=== PATIENT | male | born 1950 | race Caucasian/White ===

== ENCOUNTER → 2017-10-02 | Outpatient (CLI) | payer MEDICARE, OTHER | LOC: M PLARAD 08:36 | DX: M54.5 Low back pain (principal) | CPT/HCPCS: 72148 ==

== ENCOUNTER → 2017-11-27 | Outpatient (CLI) | payer MEDICARE, OTHER | LOC: M PAIN 09:00 | DX: M96.1 Postlaminectomy syndrome, not elsewhere classified (principal); M47.816 Spondylosis without myelopathy or radiculopathy, lumbar region; G89.29 Other chronic pain; I10 Essential (primary) hypertension; M19.90 Unspecified osteoarthritis, unspecified site; I25.10 Atherosclerotic heart disease of native coronary artery without angina pectoris; E11.9 Type 2 diabetes mellitus without complications; R51 Headache; E83.118 Other hemochromatosis; G47.30 Sleep apnea, unspecified; R06.83 Snoring; J44.9 Chronic obstructive pulmonary disease, unspecified; K21.9 Gastro-esophageal reflux disease without esophagitis; H81.49 Vertigo of central origin, unspecified ear; Z79.82 Long term (current) use of aspirin; Z79.899 Other long term (current) drug therapy; Z88.2 Allergy status to sulfonamides; Z88.5 Allergy status to narcotic agent; Z87.39 Personal history of other diseases of the musculoskeletal system and connective tissue | CPT/HCPCS: G0463 ==

== ENCOUNTER → 2017-12-09 | Outpatient (CLI) | payer MEDICARE, OTHER | END | disposition home or self-care (01) | LOC: M PAIN 13:15 | DX: G89.29 Other chronic pain (principal); M96.1 Postlaminectomy syndrome, not elsewhere classified; M54.5 Low back pain; M47.816 Spondylosis without myelopathy or radiculopathy, lumbar region; I10 Essential (primary) hypertension; M19.90 Unspecified osteoarthritis, unspecified site; J44.9 Chronic obstructive pulmonary disease, unspecified; G47.30 Sleep apnea, unspecified; I25.10 Atherosclerotic heart disease of native coronary artery without angina pectoris; D45 Polycythemia vera; Z79.899 Other long term (current) drug therapy; Z79.82 Long term (current) use of aspirin; Z88.2 Allergy status to sulfonamides; Z88.5 Allergy status to narcotic agent; Z87.891 Personal history of nicotine dependence | CPT/HCPCS: G0463 ==

== ENCOUNTER → 2018-07-28 | Outpatient (REF) | payer MEDICARE, OTHER ==
[~2018-07-28] MED LIST: ATEN25TA PO; BAYE325T12 PO; CHLO125TA PO; FAMO1TAB25 PO; LOSA-4 PO; LOSA25TA33 PO; METF-415 PO; VITA1CAP2 PO
== END ==
LOC: M SFHCPLAZ 17:24
PROVIDERS: ATTEND Dermatology
DX: C44.519 Basal cell carcinoma of skin of other part of trunk (principal); D23.72 Other benign neoplasm of skin of left lower limb, including hip
CPT/HCPCS: 11100; 11101; 17000; 17003; 88305; G0463

== ENCOUNTER → 2018-12-16 | Outpatient (REF) | payer MEDICARE, OTHER ==
[~2018-12-16] MED LIST changes: +LANTINJ4 SC; -LOSA-4 PO; +LOSA100T50 PO; +LOSA25TA14 PO; -LOSA25TA33 PO; +TREL1AER PO; +VITA-183 PO; -VITA1CAP2 PO
[2018-12-16 17:12] LABS: CREATININE FOR GFR 1.28 MG/DL (0.70-1.30); GLOMERULAR FILTRATION RATE 59.3 (>49)
[2018-12-16 17:46] LABS: CREATININE, URINE 45.8 MG/DL; MALB URINE SIEMENS 5.2 MG/L; MAU/CREAT RATIO 11.3 MCG/MG (0.0-30.0)
== END ==
LOC: M LABDRAW1 16:14
PROVIDERS: ATTEND Nurse Practitioner Family
DX: E11.65 Type 2 diabetes mellitus with hyperglycemia (principal)

== ENCOUNTER → 2019-03-29 | Outpatient (CLI) | payer MEDICARE, OTHER ==
--- NOTE | 2019-03-31 07:26 | REP ---
REASON FOR EXAM: Single pulmonary nodule. Assess for hypermetabolism. After the intravenous administration of 9.50 millicuries of FDG 18, triplane whole body PET CT was performed from the skull base to the mid-thigh. There are no prior PET CT's examinations for comparison. Outside prior chest CT showed an 8 mm sized nodule in the right lower lobe for which this examination was performed. The prior chest CT from the outside institution of 03/07/2019 was reviewed along with an additional prior examination from that same outside institution dated 08/27/2018. When the CT scans are compared the nodule seen in the right lower lobe is unchanged. There is no abnormal hypermetabolic activity seen in the neck, chest, abdomen, or pelvis. When the CT component of today's PET CT is windowed in lung technique and compared to the prior exams, the nodule is again seen to be stable. It is, however, just within or just outside the size requirement necessary for the systems intrinsic resolution to image hypermetabolic lesions, particularly if the lesions are minimally hypermetabolic with lowest threshold hypermetabolism. IMPRESSION: No abnormal hypermetabolic activity with findings as described above. I am more reassured that the nodule seen in the right lung lower lobe has shown stability between the two outside CT scans of the chest dated 08/27/2018 and 03/07/2019 than I am by today's PET CT showing no abnormal hypermetabolic activity. The reason is described above. Since the nodule has shown CT stability for 7 months, yearly screening CT of the chest is recommended as per the revised Fleischner's Society Criteria. The lesion can be categorized as a category 2 nodule. Electronically Signed by Sylvester Hopkins DO 03/31/2019 11:12 A
== END ==
LOC: M PLARAD 09:06
PROVIDERS: ATTEND Physician Assistant
DX: R91.1 Solitary pulmonary nodule (principal)
CPT/HCPCS: 78815; A9552

== ENCOUNTER 2019-09-01 09:52 | Day surgery (SDC) | payer MEDICARE, OTHER ==
[~2019-09-01] VITALS: Ht 175.3 cm; Wt 100.0 kg
[~2019-09-01 09:52] MED LIST changes: +CEFUROXIME 1MG/0.1ML INTRACAMERAL INJ As Ordered ONE; +DUOVISC (0.50ML VISCOAT/0.55ML PROVISC) OPHTH KIT As Ordered ONE; +LR 1,000 ML IV ONE; +MIDAZOLAM INJ 2 MG/2 ML VIAL (J2250) As Ordered ONE; +OFLOXACIN 0.3 % (OCUFLOX) OPTH SOL 5ML OS ONE; +PHENYLEPHRINE 2.5% OPHTH SOL 2ML OS ONE; +POVIDONE-IODINE 5% OPHTH PREP SOL 30ML As Ordered ONE; +PROPARACAINE 0.5% OPHTH SOL 15ML OS ONE; +TROPICAMIDE 1% OPHTH SOLN 2ML OS ONE; +VITA100066 PO
[2019-09-01] MEDS ORDERED: BSS IRR 500ML/OMIDRIA 4ML IRR BAG (OR ONLY) (J1097 PER ML) As Ordered ONE (10:00)
[2019-09-01] MEDS ORDERED: fentaNYL 100 MCG/2 ML INJECTION (J3010) As Ordered ONE (12:15)
[2019-09-01 13:26] VITALS: BP 117/64
--- NOTE | 2019-09-02 19:35 | RO ---
DATE OF PROCEDURE: 09/01/2019 PREOPERATIVE DIAGNOSIS: 1. Visually significant nuclear sclerotic cataract left eye. POSTOPERATIVE DIAGNOSIS: 1. Visually significant nuclear sclerotic cataract left eye. PROCEDURE: 1. Cataract extraction with use of phacoemulsification and placement of intraocular lens, AU00T0, 21.0 D, left eye. SURGEON: Christiano Ledbetter DO ROAD GANG SUPERVISOR: None. ANESTHESIA: Local with monitored anesthesia care (MAC), Omidria 4mL/500mL (Omeros) COMPLICATIONS: None. POSTOPERATIVE CONDITION: Stable. INDICATIONS FOR SURGERY: 1. Blurred vision affecting patients activities of daily living. DESCRIPTION OF PROCEDURE: The patient was seen in the preoperative area and properly identified. The correct operative eye was identified and marked. The patient received topical anesthetic, antibiotics, and topical dilating drops. The patient was then transferred to the operating room. The correct side was re-identified, and a time-out was performed. The eye was prepped and draped in a sterile fashion. The eyelids were isolated with Tegaderm tape, and the lids were held open with an adjustable speculum. A 1.0 mm paracentesis incision was made. Intraocular preservative-free Shugarcaine was then injected into the anterior chamber. Viscoelastic was then injected into the anterior chamber through the paracentesis. Using a 2.4 mm sharp-tipped keratome, the anterior chamber was entered via a temporal clear cornea incision. A continuous curvilinear capsulorrhexis was created with Utrata forceps. Hydrodissection was performed with balanced salt solution (BSS) on a blunt cannula until the nucleus was able to rotate freely. The crystalline lens was phacoemulsified and aspirated. Irrigation/aspiration was used to remove the cortical material. Cohesive viscoelastic was placed into the capsular bag to deepen it. The implant was placed into the capsular bag and allowed to unfold. Placement was confirmed by visualizing the anterior capsulorrhexis. Irrigation/aspiration was used to remove the viscoelastic. The clear corneal incision was hydrated with BSS on a blunt cannula. The lens was well positioned. The incisions were then tested for leaks and found to be negative. Cefuroxime was placed into the anterior chamber. The eye was then palpated for appropriate pressure and adjusted accordingly with BSS. The eyelid speculum was then carefully removed. A shield was placed over the eye. The patient tolerated the procedure well and was discharged to the recovery unit in a stable condition. JONAS
== END 2019-09-01 13:30 | disposition home or self-care (01) ==
LOC: M SDC 09:52
PROVIDERS: ATTEND Ophthalmology
DX: H25.12 Age-related nuclear cataract, left eye (principal); M54.41 Lumbago with sciatica, right side; M54.42 Lumbago with sciatica, left side; J44.9 Chronic obstructive pulmonary disease, unspecified; E11.69 Type 2 diabetes mellitus with other specified complication; E66.9 Obesity, unspecified; I11.9 Hypertensive heart disease without heart failure; E78.5 Hyperlipidemia, unspecified; G47.33 Obstructive sleep apnea (adult) (pediatric); N52.9 Male erectile dysfunction, unspecified; M10.9 Gout, unspecified; K21.9 Gastro-esophageal reflux disease without esophagitis; M47.9 Spondylosis, unspecified; D45 Polycythemia vera; Z88.5 Allergy status to narcotic agent; Z88.2 Allergy status to sulfonamides; Z88.8 Allergy status to other drugs, medicaments and biological substances; Z79.899 Other long term (current) drug therapy; Z79.82 Long term (current) use of aspirin; Z79.52 Long term (current) use of systemic steroids; Z79.4 Long term (current) use of insulin; Z87.891 Personal history of nicotine dependence
CPT/HCPCS: 66984; J1097; J2250; J3010; V2632

== ENCOUNTER → 2019-09-08 | Outpatient (REF) ==
[~2019-09-08] MED LIST changes: -CEFUROXIME 1MG/0.1ML INTRACAMERAL INJ As Ordered ONE; -DUOVISC (0.50ML VISCOAT/0.55ML PROVISC) OPHTH KIT As Ordered ONE; -LR 1,000 ML IV ONE; -MIDAZOLAM INJ 2 MG/2 ML VIAL (J2250) As Ordered ONE; -OFLOXACIN 0.3 % (OCUFLOX) OPTH SOL 5ML OS ONE; -PHENYLEPHRINE 2.5% OPHTH SOL 2ML OS ONE; -POVIDONE-IODINE 5% OPHTH PREP SOL 30ML As Ordered ONE; -PROPARACAINE 0.5% OPHTH SOL 15ML OS ONE; -TROPICAMIDE 1% OPHTH SOLN 2ML OS ONE
== END ==
LOC: M LAB LCGH 10:47
PROVIDERS: ATTEND Surgery
DX: C44.629 Squamous cell carcinoma of skin of left upper limb, including shoulder (principal); C44.712 Basal cell carcinoma of skin of right lower limb, including hip

== ENCOUNTER 2019-09-15 09:29 | Day surgery (SDC) | payer MEDICARE, OTHER ==
[~2019-09-15] VITALS: Ht 174 cm; Wt 99.8 kg
[~2019-09-15 09:29] MED LIST changes: +BSS IRR 500ML/OMIDRIA 4ML IRR BAG (OR ONLY) (J1097 PER ML) As Ordered ONE; +CEFUROXIME 1MG/0.1ML INTRACAMERAL INJ As Ordered ONE; +DUOVISC (0.50ML VISCOAT/0.55ML PROVISC) OPHTH KIT As Ordered ONE; +OFLOXACIN 0.3 % (OCUFLOX) OPTH SOL 5ML OD ONE; +PHENYLEPHRINE 2.5% OPHTH SOL 2ML OD ONE; +POVIDONE-IODINE 5% OPHTH PREP SOL 30ML As Ordered ONE; +PROPARACAINE 0.5% OPHTH SOL 15ML OD ONE; +TROPICAMIDE 1% OPHTH SOLN 2ML OD ONE
[2019-09-15] MEDS ORDERED: MIDAZOLAM INJ 2 MG/2 ML VIAL (J2250) As Ordered ONE (11:47)
[2019-09-15] MEDS ORDERED: fentaNYL 100 MCG/2 ML INJECTION (J3010) As Ordered ONE (11:47)
[2019-09-15 13:25] VITALS: BP 116/65
--- NOTE | 2019-09-16 16:23 | RO ---
DATE OF PROCEDURE: 09/15/2019 PREOPERATIVE DIAGNOSIS: 1. Visually significant nuclear sclerotic cataract right eye. POSTOPERATIVE DIAGNOSIS: 1. Visually significant nuclear sclerotic cataract right eye. PROCEDURE: 1. Cataract extraction with use of phacoemulsification and placement of intraocular lens, AU00T0, 21.5 D, right eye. SURGEON: Christiano Ledbetter DO AUTISTIC TEACHER: None. ANESTHESIA: Local with monitored anesthesia care (MAC), with Omidria (4 mL/500 mL) mixed into irrigation solution. COMPLICATIONS: None. POSTOPERATIVE CONDITION: Stable. INDICATIONS FOR SURGERY: 1. Blurred vision affecting patients activities of daily living. DESCRIPTION OF PROCEDURE: The patient was seen in the preoperative area and properly identified. The correct operative eye was identified and marked. The patient received topical anesthetic, antibiotics, and topical dilating drops. The patient was then transferred to the operating room. The correct side was re-identified, and a time-out was performed. The eye was prepped and draped in a sterile fashion. The eyelids were isolated with Tegaderm tape, and the lids were held open with an adjustable speculum. A 1.0 mm paracentesis incision was made. Intraocular preservative-free Shugarcaine was then injected into the anterior chamber. Viscoelastic was then injected into the anterior chamber through the paracentesis. Using a 2.4 mm sharp-tipped keratome, the anterior chamber was entered via a temporal clear cornea incision. A continuous curvilinear capsulorrhexis was created with Utrata forceps. Hydrodissection was performed with balanced salt solution (BSS) on a blunt cannula until the nucleus was able to rotate freely. The crystalline lens was phacoemulsified and aspirated. Irrigation/aspiration was used to remove the cortical material. Cohesive viscoelastic was placed into the capsular bag to deepen it. The implant was placed into the capsular bag and allowed to unfold. Placement was confirmed by visualizing the anterior capsulorrhexis. Irrigation/aspiration was used to remove the viscoelastic. The clear corneal incision was hydrated with BSS on a blunt cannula. The lens was well positioned. The incisions were then tested for leaks and found to be negative. Cefuroxime was injected into the anterior chamber. The eye was then palpated for appropriate pressure and adjusted accordingly with BSS. The eyelid speculum was then carefully removed. A shield was placed over the eye. The patient tolerated the procedure well and was discharged to the recovery unit in a stable condition.
== END 2019-09-15 13:25 | disposition home or self-care (01) ==
LOC: M SDC 09:29
PROVIDERS: ATTEND Ophthalmology
DX: H25.11 Age-related nuclear cataract, right eye (principal); I10 Essential (primary) hypertension; E10.9 Type 1 diabetes mellitus without complications; Z79.4 Long term (current) use of insulin; Z79.84 Long term (current) use of oral hypoglycemic drugs; K21.9 Gastro-esophageal reflux disease without esophagitis; M10.9 Gout, unspecified; J44.9 Chronic obstructive pulmonary disease, unspecified; Z88.2 Allergy status to sulfonamides; Z88.5 Allergy status to narcotic agent; Z87.891 Personal history of nicotine dependence; Z79.899 Other long term (current) drug therapy; G47.30 Sleep apnea, unspecified; Z92.3 Personal history of irradiation
CPT/HCPCS: 66984; J1097; J2250; J3010; V2632

== ENCOUNTER → 2019-11-01 | Outpatient (REF) | payer MEDICARE, OTHER ==
[~2019-11-01] MED LIST changes: +ADV500INH INH; -BSS IRR 500ML/OMIDRIA 4ML IRR BAG (OR ONLY) (J1097 PER ML) As Ordered ONE; -CEFUROXIME 1MG/0.1ML INTRACAMERAL INJ As Ordered ONE; +CHLO50TA PO; -DUOVISC (0.50ML VISCOAT/0.55ML PROVISC) OPHTH KIT As Ordered ONE; +FAMO20TA PO; +HUMA100I5 SC; +JARD1TAB PO; +MUPI2OI EXT; +NORV5TAB PO; -OFLOXACIN 0.3 % (OCUFLOX) OPTH SOL 5ML OD ONE; -PHENYLEPHRINE 2.5% OPHTH SOL 2ML OD ONE; -POVIDONE-IODINE 5% OPHTH PREP SOL 30ML As Ordered ONE; -PROPARACAINE 0.5% OPHTH SOL 15ML OD ONE; +SPIR12.9 INH; -TROPICAMIDE 1% OPHTH SOLN 2ML OD ONE; +VITA-144 PO
== END ==
LOC: M LAB REF 15:46
PROVIDERS: ATTEND Ophthalmology
DX: C44.1292 Squamous cell carcinoma of skin of left lower eyelid, including canthus (principal)

== ENCOUNTER 2019-11-08 05:31 | Day surgery (SDC) | payer MEDICARE, OTHER ==
[~2019-11-08] VITALS: Ht 175.3 cm; Wt 100.7 kg
[2019-11-08] MEDS ORDERED: LIDOCAINE 1% MDV 20ML VIAL SQ PRN (06:00)
[2019-11-08] MEDS ORDERED: ceFAZolin SOD 2 GM in IV 1 EA IV ONE (07:00)
[2019-11-08] MEDS ORDERED: LR 1,000 ML IV ONE (07:00)
[2019-11-08] MEDS ORDERED: LIDOCAINE 2% W/EPIN INJ 20ML **PRES FREE As Ordered ONE (07:16)
[2019-11-08] MEDS ORDERED: LIDOCAINE W/EPINEPHRINE 1% 20ML VIAL As Ordered ONE ×2 (07:17→08:23)
[2019-11-08] MEDS ORDERED: EPINEPHrine INJ 1 MG/ML 1ML VIAL As Ordered ONE (07:17)
[2019-11-08] MEDS ORDERED: BACITRACIN OINT 30GM As Ordered ONE (07:17)
[2019-11-08] MEDS ORDERED: BACITRACIN PWD 50,000 UNITS VIAL As Ordered ONE (07:17)
[2019-11-08] MEDS ORDERED: MIDAZOLAM INJ 2 MG/2 ML VIAL (J2250) As Ordered ONE ×2 (07:20→08:09)
[2019-11-08] MEDS ORDERED: LIDOCAINE 2% INJ 100 MG/5 ML SDV (FOR ANES.) As Ordered ONE (07:20)
[2019-11-08] MEDS ORDERED: fentaNYL 100 MCG/2 ML INJECTION (J3010) As Ordered ONE (07:20)
[2019-11-08] MEDS ORDERED: propofoL 200 MG/20 ML VIAL As Ordered ONE ×2 (07:20→08:47)
[2019-11-08] MEDS ORDERED: LIDOCAINE 1% MDV 20ML VIAL As Ordered ONE (07:50)
[2019-11-08] MEDS ORDERED: ACETAMINOPHEN 1000MG 100ML IV BTL (OFIRMEV) (J0131 PER 10MG) As Ordered ONE (08:25)
[2019-11-08] MEDS ORDERED: ONDANSETRON 4MG/2ML VIAL (J2405) As Ordered ONE (08:25)
[2019-11-08] MEDS ORDERED: LACRILUBE (AKWA TEARS) OPHTH OINT 3.5 GM As Ordered ONE (09:30)
[2019-11-08] MEDS ORDERED: KETOROLAC 60 MG/2 ML VIAL (J1885) As Ordered ONE (09:44)
--- NOTE | 2019-11-08 09:44 | POST-OPPD ---
Postoperative Procedure Note Date Of Procedure: Nov 08, 2019 PREOPERATIVE DIAGNOSIS: Left hand malignant lesion, open wound POSTOPERATIVE DIAGNOSIS: same FINDINGS: open wound and satellite lesion left hand dorsum. 1.4 x 2.5cm PROCEDURE: Excision left hand open wound, malignant lesion with full thickness skin graft closure. Donor site left arm. Graft 1.9x2.5cm SURGEON: Dr Meza ANESTHESIA: General SPECIMENS: Left hand lesion ESTIMATED BLOOD LOSS: 5 cc REPLACED: none DRAINS: none COMPLICATIONS: none POSTOPERATIVE CONDITION: stable [id number] ESTRELLITA MEZA DO Nov 08, 2019 09:44
[2019-11-08 10:20] VITALS: BP 121/73
--- NOTE | 2019-11-08 14:59 | RO ---
DATE OF OPERATION: 11/08/2019 PREOPERATIVE DIAGNOSIS: Left hand malignant lesion, open wound. POSTOPERATIVE DIAGNOSIS: Left hand malignant lesion, open wound. FINDINGS: Open wound and satellite lesion. Total measure 1.4 x 2.5 cm in diameter. PROCEDURE: Excision left hand open wound malignant lesion with full thickness skin graft closure. Donor site left arm, graft size 1.9 x 2.5 cm. ATTENDING SURGEON: Angelika Escobar DO ANESTHESIA: General. SPECIMEN: Left hand lesion. ESTIMATED BLOOD LOSS: 5 mL. No replacements, drains or complications. 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 The patient presents to us with open wound on the left dorsum of his hand in the mid portion from the knuckle to the first webspace. The lesion is an open wound that has been not healing for the past 2- 3 months. He had excision of squamous cell carcinoma in that area. Also the patient has a satellite lesion at 9 o'clock from the original lesion. 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 However, the day of surgery we reexamined the patient and that wound has healed and has a small scab on it and does not require surgical intervention so we decided that we will only do the hand excision. All the risks, benefits and alternatives were discussed with the patient in detail regarding the graft and excision and we are planning to do frozen section, and he is ready to proceed. After informed consent was confirmed, he was brought into the operating room, placed in supine position. Preoperative antibiotics are given. Sequential stockings placed on the lower calves. He is prepped and draped in the usual sterile fashion. 1% lidocaine was infiltrated in the area of the lesion and in the area of the left upper arm where the donor site is going to be Also, the radial block was given at the wrist for pain control. After sufficient time passed, we remeasured the lesion, confirmed the sizing and then margins were taken around the excision that we are going to take, and the lesion was completely excised, marked at 12 o'clock with nylon suture and sent to pathology. Pathology confirmed that the satellite lesion next to the open wound is a squamous cell as well. All the clear margins were confirmed. At this point, the wound was irrigated with bacitracin irrigation solution. Then from the donor site we took a full thickness skin graft which was elevated. The donor site was then irrigated and hemostasis obtained and was closed in layers with interrupted #4-0 chromic sutures and #4-0 Monocryl sutures in layers, and sterile dressing was applied. The full thickness skin graft was examined, defatted and then placed and fitted to the open wound which was 1.9 x 2.5 cm at this time. Interrupted #4-0 chromic sutures were used to secure the graft, Then, the bolster dressing was created with Xeroform and bacitracin irrigation soaked cotton balls and a pressure dressing. Volar splint was placed as well as Felix dressing on the top for protection. The patient was comfortable through he whole procedure and he was transferred to the recovery room in stable condition. JONAS
== END 2019-11-08 10:39 | disposition home or self-care (01) ==
LOC: M SDC 05:31
PROVIDERS: ATTEND Plastic Surgery Surgery of the Hand
DX: C44.629 Squamous cell carcinoma of skin of left upper limb, including shoulder (principal); I10 Essential (primary) hypertension; E10.9 Type 1 diabetes mellitus without complications; Z79.4 Long term (current) use of insulin; Z79.84 Long term (current) use of oral hypoglycemic drugs; G47.30 Sleep apnea, unspecified; K21.9 Gastro-esophageal reflux disease without esophagitis; M10.9 Gout, unspecified; Z92.3 Personal history of irradiation; J44.9 Chronic obstructive pulmonary disease, unspecified; Z88.2 Allergy status to sulfonamides; Z88.5 Allergy status to narcotic agent
CPT/HCPCS: 11623; 15240; 88305; 88331; 88332; J0131; J0690; J1885; J2250; J2405; J3010